=== PATIENT | female | born 1945 ===

== ENCOUNTER 2023-07-22 07:25 | Emergency (ER) | payer OTHER ==
[~2023-07-22] VITALS: Ht 167.6 cm; Wt 81.6 kg
[~2023-07-22 07:25] MED LIST: CARDURA1 MG; CARDURA1 MG PO; HYDRODIURIL12.5 MG; JANUMET 50-1,01 EACH PO; LANTUS100 U/ML SQ; METOPROLOL SUCC25 MG PO; ZOCOR20 MG
== END 2023-07-22 16:53 | disposition home or self-care (01) ==
LOC: ER 07:25
DX: R07.89 Other chest pain (principal); J45.909 Unspecified asthma, uncomplicated; E11.9 Type 2 diabetes mellitus without complications; Z79.4 Long term (current) use of insulin; Z79.84 Long term (current) use of oral hypoglycemic drugs; Z91.013 Allergy to seafood; Z20.822 Contact with and (suspected) exposure to COVID-19
CPT/HCPCS: 36415; 71045; 93005; 94640; 96365; 96366; 96372; 99284; J1885; J2930

== ENCOUNTER 2024-08-11 00:25 | Inpatient (IN) | payer OTHER ==
[~2024-08-11] VITALS: Ht 165.1 cm; Wt 68.0 kg
[2024-08-11] MEDS ORDERED: METHYLPREDNISOLONE SOD SUCC 125 MG VIAL IV STA (00:40)
[2024-08-11] MEDS ORDERED: IPRATROPIUM/ALBUTEROL SULFATE 3 ML AMPUL.NEB IH STA (00:41)
[2024-08-11] MEDS ORDERED: FUROsemide 40 MG/4 ML VIAL IV STA (00:42)
[2024-08-11] MEDS ORDERED: IPRATROPIUM/ALBUTEROL SULFATE 3 ML AMPUL.NEB IH ONE (00:48)
[2024-08-11] MEDS ORDERED: FUROsemide 20 MG/2 ML VIAL ONE ×2 (00:48→01:06)
[2024-08-11] MEDS ORDERED: METHYLPREDNISOLONE SOD SUCC 125 MG VIAL ONE (00:48)
--- NOTE | 2024-08-11 00:50 | NUR ---
SE RECIBE PACIENTE ALERTA Y ORIENTADA X3 EN COMPANIA DE PARAMEDICOS DE AMBULANCIA QUIENES REFIERE TRAER A PTE DE EGIDA DE ANCIANOS A [place] DE QUE SCHULZ ESTADO PRESENTANDO SINTOMAS DE DIFICULTAD RESPIRATORIA. AL MOMENTO SE OBSERVA PACIENTE CON RESPIRACIONES ABDOMINALES Y CONECTADA A VENTURY MASK. SE REALIZA KENJI DE S/V Y SE UBICA EN AREA DE CRITICO EN CAMA #3.
[2024-08-11 00:56] LABS: HEMATOCRIT 30.8 % (36.0-45.00); HEMOGLOBIN 10.2 g/dL (12.0-15.00); MEAN CELL VOLUME 92.3 fL (80.00-100.00); MEAN CORPUSCULAR HEMOGLOBIN 30.7 pg (27.00-32.0); MEAN CORPUSCULAR HGB CONC 33.3 g/dl (32.0-36.0); PLATELET COUNT 236 K/uL (150-450); RED BLOOD COUNT 3.34 M/uL (4.00-6.00); RED CELL DISTRIBUTION WIDTH 14.6 % (11.5-14.5)
[2024-08-11] MEDS ORDERED: 0.9 % SODIUM CHLORIDE 500 ML IV STA (01:00)
[2024-08-11] MEDS ORDERED: NITROGLYCERIN IN 5 % DEXTROSE 50 MG/250 ML BOTTLE IV STA (01:03)
[2024-08-11] MEDS ORDERED: FUROsemide 20 MG/2 ML VIAL IV STA (01:03)
[2024-08-11] MEDS ORDERED: NITROGLYCERIN IN 5 % DEXTROSE 50 MG/250 ML BOTTLE IV ONE (01:07)
[2024-08-11 01:16] LABS: ALBUMIN 3.6 gm/dL (3.4-5.0); BILIRUBIN TOTAL 0.86 mg/dL (0.3-1.2); CREATININE SERUM 1.58 mg/dL (0.55-1.02); GFR 31.47; POTASSIUM 4.43 mEq/L (3.5-5.1); TOTAL PROTEIN 7.6 gm/dL (6.4-8.2)
--- NOTE | 2024-08-11 01:30 | NUR ---
SE RECIBE PTE ALERTA ORIENTADA X3 EN AMBULANCIA EN COMPANIA DE PARAMEDICOS.SE RECIBE PTE CON NRM 100%.PARAMEDICOS REFIERE PTE PRESENTA SOB DESDE HOY EN LA NOCHE.SE KENJI EKG Y SE PRESENTA A EL CUAL ORDENA UBICAR PTE EN AREA DE CRITICO CAMA #3.SE ALEXEY MUESTRAS DE LABORATORIO USANDO MEDIDAS ASEPTICAS.SE ADMINISTRAN MEDICAMENTOS CHANTAL ORDEN MEDICA.VENOPUNCION PATENTE COREY DE EDEMA Y ERITEMA RECIBIENDO 0.9 NSS BAJANDO A 30ML/HR Y DRIP DE TRIDIL 50MG/250ML BAJANDO A 6ML/HR.SE INSERTA SONDA URINARIA A GRAVEDAD USANDO MEDIDAS ASEPTICAS Y ESTERILES EGRESO NORMAL ORINA DE COLOR [place].SE NOTIFICA A RT ACEVEDO SOBRE ABGS Y TX DE POWER/NEBULIZER.SE ORIENTA PTE SOBRE OBJETIVO DE TX MEDICO. PTE MANEJADO POR MARTITA LEVY.
[2024-08-11 03:03] LABS: ABG PH 7.354 (7.35-7.45); ABG pCO2 39.6 mmHg (35-45); BASE EXCESS -3.6 mmol/l; BICARBONATE 21.5 mmol/l (23-25); SaO2 96.7 %; Tco2 22.8 mmol/l; o2 21 %
[2024-08-11 03:04] LABS: ABG PO2 93.7 mmHg (80-100); allen test SATISFACTORY; puncture site RADIAL RIGHT
[2024-08-11] MEDS ORDERED: ALBUTEROL SULFATE 3 ML/2.5 MG AMPUL.NEB IH ONE (04:23)
[2024-08-11] MEDS ORDERED: ACETAMINOPHEN 500 MG GEL..CAP PO ONE (05:26)
--- NOTE | 2024-08-11 07:00 | NUR ---
SE RECIBE PTE ALERTA Y ORIENTADA X3 EN UNIDADA DE ICU 2 EN DESCANZO EN CAMA BAJA CON BARANDAS ELEVADAS. PTE CONECTADA A MONITOR CARDIACO Y OXIMETRIA DE PULSO CONTINUO, CANULA NASAL A 3LT/MIN. EXTREMIDADES SUPERIORES LIBRES DE EDEMA Y ERITEMA CON #18 x2 EN LA Y # 20 EN RA PATENTES RECIBIENDO TRATAMIENTO MEDICO VIA IV DE TRIDIL @ 1ML/HR Y 0.9NSS @ 30ML/HR. ABDOMEN BLANDO AL TACTO CON PERISTALSIS PRESENTE. SONDA URINARIA SAENZ BAJANDO A GRAVEDAD. EXTREMIDADES INFERIORES LIBRES DE EDEMA Y ERITEMA. SE ALEXEY SV AL RECIBIR EL TURNO Y SE DOCUMENTAN LOS MISMOS.
[2024-08-11] MEDS ORDERED: MORPHINE SULFATE 4 MG/ML VIAL IV ONE (08:30)
[2024-08-11] MEDS ORDERED: ORPHENADRINE CITRATE 30 MG/ML AMPUL IM ONE (11:00)
[2024-08-11] MEDS ORDERED: IPRATROPIUM/ALBUTEROL SULFATE 3 ML AMPUL.NEB IH SCH (13:50)
[2024-08-11] MEDS ORDERED: METOPROLOL TARTRATE 5MG/5ML AMPUL IV ONE (15:30)
--- NOTE | 2024-08-11 16:33 | NUR ---
SE RECIBE A PACIENTE ALERTA Y ORIENTADA X3 CONECTADA A MONITOR CARDIACO Y OXIMETRIA CONTINUA. PACIENTE AL MOMENTO CON CANULA NASAL A 3LT/MIN, TOLERANDO LA MISMA. CANALIZADA CON #18 X2 EN LT ARM Y #20 EN RT ARM, PATENTES, LIBRES DE EDEMA Y ERITEMA Y BAJANDO O.9NSS 500ML A 30ML/HR Y TRIDIL 50MG/250ML A 3ML/HR. EXTREMIDADES SUPERIORES SE OBSERVAN LIBRES DE EDEMA Y ERITEMA. ABDOMEN BLANDO, NO DISTENDIDO Y COREY DE DOLOR AL TACTO. AL MOMENTO PACIENTE CON SAENZ COLOCADO BAJANDO A GRAVEDAD, ORINA SE OBSERVA DE COLOR AM[place]ILLO INTENSO SIN SEDIMENTACION. EXTREMIDADES INFERIORES SE OBSERVAN CON LEVE EDEMA Y SIN ERITEMA. PACIENTE SE MANTIENE EN CAMA A NIVEL DE PISO JUNTO CON BARRANDAS ELEVADAS. PENDIENTE A CONSULTAS MEDICAS.
[2024-08-11 18:10] VITALS: BP 151/75; O2SAT 100
[2024-08-11] MEDS ORDERED: AMIODARONE HCL 50 MG/ML AMPUL IV ONE (18:30)
[2024-08-11] MEDS ORDERED: IPRATROPIUM BROMIDE 0.5 MG/2.5 ML AMPUL.NEB IH SCH (19:07)
[2024-08-11] MEDS ORDERED: FUROsemide 20 MG/2 ML VIAL IV SCH (19:09)
[2024-08-11] MEDS ORDERED: DEXTROSE 50 % IN WATER 0.5 G/ML DISP.SYRIN IV PRN (19:15)
[2024-08-11] MEDS ORDERED: ACETAMINOPHEN 500 MG GEL..CAP PO PRN (19:15)
[2024-08-11] MEDS ORDERED: INSULIN LISPRO 1,000 UNIT/10 ML UNITS SUBCUTANEO PRN (19:15)
[2024-08-11 20:30] LABS: D DIMER 1.94 MG/L; INR 1.1; PARTIAL THROMBOPLASTIN TIME 28.5 SECONDS (22.0-34.0); PROTHROMBIN TIME 11.9 SECONDS (9.0-11.5)
[2024-08-11 20:46] LABS: URINE APPEARANCE Clear; URINE BILIRRUBIN Negative (NEGATIVE); URINE BLOOD Small; URINE COLOR Yellow; URINE GLUCOSE Negative (NEGATIVE); URINE KETONE Negative (NEGATIVE); URINE LEUKOCYTE Negative; URINE NITRATE Negative; URINE UROBILINOGEN 0.2 E.U./dl
[2024-08-11 20:50] LABS: URINE BACTERIA 167.5 uL (0.0-1933); URINE EPITHELIAL CELLS 8.6 uL (0.0-38.8); URINE RBC 66.7 uL (0.0-20.8); URINE WBC 15.9 uL (0.0-23.2)
[2024-08-11 20:52] LABS: URINE CAST 0.76 uL (0.0-1.40); URINE PROTEIN 100 (NEGATIVE)
[2024-08-11] MEDS ORDERED: ENOXAPARIN SODIUM 60 MG/0.6 ML SYRINGE SUBCUTANEO SCH (21:00)
[2024-08-11 22:23] VITALS: BP 139/60; O2SAT 99
[2024-08-11 23:22] VITALS: BP 116/57; O2SAT 98
[2024-08-12] VITALS (22 sets, daily range): BP systolic 107–158; BP diastolic 54–79; O2SAT 93–100
[2024-08-12] MEDS ORDERED: NITROGLYCERIN IN 5 % DEXTROSE 250 ML IV SCH ×2 (01:47→07:15)
[2024-08-12 07:14] LABS: MAGNESIUM 1.9 mg/dL (1.8-2.4); TSH 0.871 uIU/mL (0.358-3.74)
[2024-08-12] MEDS ORDERED: FAMOTIDINE/PF 20 MG in 0.9 % SODIUM CHLORIDE 8 ML IV PUSH SCH (09:00)
[2024-08-12] MEDS ORDERED: CLOPIDOGREL BISULFATE 75 MG TABLET PO SCH (09:00)
[2024-08-12] MEDS ORDERED: ATORVASTATIN CALCIUM 40 MG TABLET PO SCH ×2 (09:00)
[2024-08-12] MEDS ORDERED: ASPIRIN 81 MG TAB.CHEW PO SCH (09:00)
[2024-08-13] VITALS (18 sets, daily range): BP systolic 114–162; BP diastolic 52–83; O2SAT 97–100
[2024-08-13] MEDS ORDERED: AMIODARONE HCL 200 MG TABLET PO SCH (09:00)
[2024-08-13] MEDS ORDERED: hydrALAZINE HCL 25 MG TABLET PO SCH ×2 (10:44→10:45)
[2024-08-14 06:41] LABS: HEMATOCRIT 31.4 % (36.0-45.00); HEMOGLOBIN 10.7 g/dL (12.0-15.00); MEAN CORPUSCULAR HEMOGLOBIN 31.4 pg (27.00-32.0); MEAN CORPUSCULAR HGB CONC 34.1 g/dl (32.0-36.0); PLATELET COUNT 218 K/uL (150-450); RED BLOOD COUNT 3.41 M/uL (4.00-6.00)
[2024-08-14 07:02] VITALS: BP 145/62; O2SAT 99
[2024-08-14 07:24] LABS: CALCIUM 9.3 mg/dL (8.5-10.1); CREATININE SERUM 1.51 mg/dL (0.55-1.02); GFR 33.16; POTASSIUM 3.39 mEq/L (3.5-5.1)
[2024-08-14] MEDS ORDERED: POTASSIUM CHLORIDE 10 MEQ CAPSULE PO NR (11:15)
[2024-08-14 12:00] VITALS: BP 106/63; O2SAT 99
[2024-08-14 15:23] VITALS: BP 106/63; BP 140/79; O2SAT 100
[2024-08-14 21:02] VITALS: BP 139/56; O2SAT 100
[2024-08-14 23:03] VITALS: BP 106/50; O2SAT 96
[2024-08-15 02:43] VITALS: BP 121/66; O2SAT 96
[2024-08-15] MEDS ORDERED: INSULIN NPH HUM/REG INSULIN HM 1,000 UNIT/10 ML UNITS SUBCUTANEO SCH (08:00)
[2024-08-15 09:48] VITALS: BP 107/54
[2024-08-15 16:33] VITALS: BP 113/65
[2024-08-15] MEDS ORDERED: BISACODYL 5 MG TABLET.EC PO SCH (17:00)
[2024-08-16 00:55] VITALS: BP 135/60; O2SAT 96
[2024-08-16 05:40] LABS: CALCIUM 8.3 mg/dL (8.5-10.1); CREATININE SERUM 1.92 mg/dL (0.55-1.02); GFR 25.13; POTASSIUM 3.2 mEq/L (3.5-5.1)
[2024-08-16] MEDS ORDERED: NA PHOS,M-B/NA PHOS,DI-BA 1 BOTTLE ENEMA RECTAL STA (08:56)
[2024-08-16] MEDS ORDERED: POTASSIUM CHLORIDE 20MEQ/100ML H2O PB IV NR (08:57)
[2024-08-16] MEDS ORDERED: MINERAL OIL 30 ML BLIST.PACK PO STA (08:57)
[2024-08-16 09:38] VITALS: BP 125/73; O2SAT 95
[2024-08-16 14:53] VITALS: O2SAT 98
[2024-08-16 16:30] VITALS: BP 154/69
[2024-08-16 16:35] VITALS: O2SAT 95
[2024-08-16 20:50] VITALS: O2SAT 97
[2024-08-17] MEDS ORDERED: ENOXAPARIN SODIUM 60 MG/0.6 ML SYRINGE SUBCUTANEO SCH (09:00)
== END 2024-08-16 22:24 | disposition home or self-care (01) | DRG 280 ==
LOC: ER 00:25 → ICU 19:28 → ICU-2 19:28 → ICU 22:58 → MEDJ 08-14 22:08
PROVIDERS: General Practice; ADMIT Internal Medicine; ATTEND Internal Medicine
PROC: B246ZZZ Ultrasonography of Right and Left Heart (ICD-10-PCS; principal; 2024-08-11)
PROC: 4A12X4Z Monitoring of Cardiac Electrical Activity, External Approach (ICD-10-PCS; 2024-08-11)
PROC: 3E0F7GC Introduction of Other Therapeutic Substance into Respiratory Tract, Via Natural or Artificial Opening (ICD-10-PCS; 2024-08-11)
PROC: 02HV33Z Insertion of Infusion Device into Superior Vena Cava, Percutaneous Approach (ICD-10-PCS; 2024-08-12)
DX: I21.A1 Myocardial infarction type 2 (principal); I50.33 Acute on chronic diastolic (congestive) heart failure; I13.0 Hypertensive heart and chronic kidney disease with heart failure and stage 1 through stage 4 chronic kidney disease, or unspecified chronic kidney disease; I48.20 Chronic atrial fibrillation, unspecified; N17.9 Acute kidney failure, unspecified; J90 Pleural effusion, not elsewhere classified; I24.9 Acute ischemic heart disease, unspecified; E11.65 Type 2 diabetes mellitus with hyperglycemia; D64.89 Other specified anemias; N18.9 Chronic kidney disease, unspecified; F43.20 Adjustment disorder, unspecified; E78.5 Hyperlipidemia, unspecified; Z79.4 Long term (current) use of insulin; Z91.013 Allergy to seafood

== ENCOUNTER 2024-10-26 14:31 | Inpatient (IN) | payer OTHER ==
[~2024-10-26] VITALS: Ht 160 cm; Wt 70.3 kg
--- NOTE | 2024-10-26 14:51 | NUR ---
SE RECIBE PTE ALERTA ORIENTADA X3 EN AMBULANCIA.PTE REFIERE SENTOR DIFICULTAD RESPIRATORIA DESDE EL ANTHONY DE RUBÉN.PTE CON HX DE CHF.SE KENJI EKG SE PRESENTA A EL CUAL ORDENA UBICAR PTE EN CHEST PAIN.
[2024-10-26] MEDS ORDERED: FUROsemide 40 MG/4 ML VIAL IV ONE (15:00)
[2024-10-26] MEDS ORDERED: NITROGLYCERIN IN 5 % DEXTROSE 50 MG/250 ML BOTTLE IV ONE ×2 (15:00→21:00)
--- NOTE | 2024-10-26 15:47 | NUR ---
SE ORIENTA PTE SOBRE TX, REFIERE ENTENDER Y ACEPTAR. SE LE CANALIZA X2 EN BRAZO OSCAR CON ANGIOS #18, LOS CUALES ESTAN PATENTES, LIBRES DE EDEMA Y ERITEMA, SE LE ADMINISTRAN MEDICAMENTOS CHANTAL ORDEN MEDICA Y SE LE ALEXEY MUESTRAS DE LABORATORIO BAJO MEDIDAS ASEPTICAS. SE LE INSERTA SAENZ CATHETER, PTE TOLERA TODO PROCEDIMIENTO. PERSONAL DE RADIOGRAFIA REALIZA XRAYS, PENDIENTE ABG'S.
[2024-10-26 15:54] LABS: HEMATOCRIT 28.7 % (36.0-45.00); HEMOGLOBIN 9.3 g/dL (12.0-15.00); MEAN CELL VOLUME 88.4 fL (80.00-100.00); MEAN CORPUSCULAR HEMOGLOBIN 28.8 pg (27.00-32.0); MEAN CORPUSCULAR HGB CONC 32.5 g/dl (32.0-36.0); PLATELET COUNT 255 K/uL (150-450); RED BLOOD COUNT 3.24 M/uL (4.00-6.00); RED CELL DISTRIBUTION WIDTH 15.8 % (11.5-14.5)
[2024-10-26 16:02] LABS: INR 1.11; PARTIAL THROMBOPLASTIN TIME 29.4 SECONDS (22.0-34.0)
[2024-10-26 16:05] LABS: ALBUMIN 3.6 gm/dL (3.4-5.0); BILIRUBIN TOTAL 1.05 mg/dL (0.3-1.2); CALCIUM 8.9 mg/dL (8.5-10.1); CREATININE SERUM 1.98 mg/dL (0.55-1.02); GFR 24.25; GLOBULINA 3.4 G/DL (2.4-3.5); POTASSIUM 4.53 mEq/L (3.5-5.1)
[2024-10-26 17:59] LABS: ABG PH 7.461 (7.35-7.45); ABG pCO2 31.7 mmHg (35-45)
[2024-10-26 18:01] LABS: BASE EXCESS -0.8 mmol/l; BICARBONATE 22.1 mmol/l (23-25); SaO2 90.5 %; allen test SATISFACTORY; puncture site RADIAL RIGHT
[2024-10-26 18:02] LABS: o2 28 %
[2024-10-26 18:24] LABS: URINE APPEARANCE Cloudy; URINE BILIRRUBIN Negative (NEGATIVE); URINE BLOOD Trace; URINE COLOR Orange; URINE GLUCOSE Negative (NEGATIVE); URINE KETONE Negative (NEGATIVE); URINE LEUKOCYTE Moderate; URINE NITRATE Positive
[2024-10-26 18:29] LABS: URINE CAST 1.47 uL (0.0-1.40); URINE EPITHELIAL CELLS 4.9 uL (0.0-38.8); URINE RBC 38.4 uL (0.0-20.8); URINE WBC 1052.5 uL (0.0-23.2)
[2024-10-26 18:52] LABS: URINE BACTERIA > 9821.5 uL (0.0-1933); URINE PROTEIN 100 (NEGATIVE)
[2024-10-26] MEDS ORDERED: INSULIN LISPRO 1,000 UNIT/10 ML UNITS SUBCUTANEO PRN (20:45)
[2024-10-26] MEDS ORDERED: DEXTROSE 50 % IN WATER 0.5 G/ML DISP.SYRIN IV PRN (20:45)
[2024-10-26] MEDS ORDERED: IPRATROPIUM/ALBUTEROL SULFATE 3 ML AMPUL.NEB IH SCH (20:46)
[2024-10-26 21:00] VITALS: BP 109/67; O2SAT 96
[2024-10-26] MEDS ORDERED: ACETAMINOPHEN 325 MG TABLET PO PRN (21:00)
[2024-10-26 22:00] VITALS: BP 118/51; O2SAT 100
[2024-10-26 23:30] VITALS: BP 127/58; O2SAT 100
[2024-10-27] VITALS (7 sets, daily range): BP systolic 100–145; BP diastolic 49–94; O2SAT 90–100
[2024-10-27] MEDS ORDERED: FUROsemide 20 MG/2 ML VIAL IV SCH (01:00)
[2024-10-27] MEDS ORDERED: PANTOPRAZOLE SODIUM 40 MG/VIAL VIAL IV SCH (09:00)
[2024-10-27] MEDS ORDERED: CEFTRIAXONE SODIUM 2,000 MG VIAL IV SCH (09:00)
[2024-10-27] MEDS ORDERED: NIFEDIPINE 30 MG TAB.SA.OSM PO SCH (09:00)
[2024-10-27] MEDS ORDERED: ENOXAPARIN SODIUM 30 MG/0.3 ML SYRINGE SUBCUTANEO SCH (09:00)
[2024-10-27] MEDS ORDERED: ATORVASTATIN CALCIUM 40 MG TABLET PO SCH (21:00)
[2024-10-27] MEDS ORDERED: GABAPENTIN 100 MG CAPSULE PO SCH (21:00)
[2024-10-28] VITALS (9 sets, daily range): BP systolic 111–148; BP diastolic 57–76; O2SAT 89–97
[2024-10-28] MEDS ORDERED: MEROPENEM 1,000 MG in 0.9 % SODIUM CHLORIDE 100 ML IV SCH (09:00)
[2024-10-28] MEDS ORDERED: NITROGLYCERIN IN 5 % DEXTROSE 50 MG/250 ML BOTTLE IV SCH (12:30)
[2024-10-28] MEDS ORDERED: NITROGLYCERIN IN 5 % DEXTROSE 250 ML IV SCH (12:45)
[2024-10-28] MEDS ORDERED: MEROPENEM 500 MG in 0.9 % SODIUM CHLORIDE 50 ML IV SCH (17:00)
[2024-10-29] VITALS (7 sets, daily range): BP systolic 99–138; BP diastolic 63–64; O2SAT 94–96
[2024-10-29] MEDS ORDERED: ISOSORBIDE MONONITRATE 30 MG TABLET PO SCH (09:00)
[2024-10-30] VITALS: BP 138/63; O2SAT 97
[2024-10-30 05:55] VITALS: O2SAT 96
[2024-10-30 09:48] VITALS: BP 104/73; O2SAT 97
[2024-10-30 10:08] VITALS: O2SAT 97
[2024-10-30 16:00] VITALS: BP 100/60; O2SAT 93
[2024-10-31 00:11] VITALS: BP 135/68; O2SAT 98
[2024-10-31 08:00] VITALS: BP 126/66; O2SAT 93
[2024-10-31 15:24] LABS: HEMATOCRIT 24.4 % (36.0-45.00); MEAN CELL VOLUME 87.1 fL (80.00-100.00); MEAN CORPUSCULAR HGB CONC 33.1 g/dl (32.0-36.0); PLATELET COUNT 258 K/uL (150-450); RED CELL DISTRIBUTION WIDTH 16.1 % (11.5-14.5)
[2024-10-31 15:25] LABS: MEAN CORPUSCULAR HEMOGLOBIN 28.9 pg (27.00-32.0); URINE APPEARANCE Clear; URINE BILIRRUBIN Negative (NEGATIVE); URINE BLOOD Negative; URINE COLOR Yellow; URINE GLUCOSE Negative (NEGATIVE); URINE KETONE Negative (NEGATIVE); URINE LEUKOCYTE Small; URINE NITRATE Negative; URINE PROTEIN 30 (NEGATIVE); URINE UROBILINOGEN 0.2 E.U./dl
[2024-10-31 15:26] LABS: HEMOGLOBIN 8.1 g/dL (12.0-15.00)
[2024-10-31 15:29] LABS: URINE BACTERIA 83.2 uL (0.0-1933); URINE EPITHELIAL CELLS 28.4 uL (0.0-38.8); URINE RBC 3.8 uL (0.0-20.8)
[2024-10-31 15:55] LABS: CALCIUM 8.6 mg/dL (8.5-10.1); CREATININE SERUM 2.86 mg/dL (0.55-1.02); GFR 15.87; POTASSIUM 4.47 mEq/L (3.5-5.1)
[2024-10-31 16:00] VITALS: BP 135/61; O2SAT 95
[2024-10-31 16:17] LABS: URINE CAST 1.03 uL (0.0-1.40)
[2024-11-01 01:26] VITALS: BP 142/68; O2SAT 95
[2024-11-01 08:00] VITALS: BP 148/64; O2SAT 98
[2024-11-01] MEDS ORDERED: PANTOPRAZOLE SODIUM 40 MG TABLET.DR PO SCH (09:00)
[2024-11-01 09:26] LABS: ABG PH 7.426 (7.35-7.45); ABG PO2 85.6 mmHg (80-100); ABG pCO2 34.9 mmHg (35-45); BASE EXCESS -1.3 mmol/l; BICARBONATE 22.4 mmol/l (23-25); SaO2 96.7 %; Tco2 23.5 mmol/l
[2024-11-01 10:31] LABS: o2 21 %
[2024-11-01 10:32] LABS: puncture site BRADIAL RIGHT
[2024-11-01 16:00] VITALS: BP 134/62; O2SAT 94
[2024-11-01] MEDS ORDERED: FUROsemide 20 MG/2 ML VIAL IV SCH (21:00)
[2024-11-02 02:01] VITALS: BP 118/70; O2SAT 96
[2024-11-02 08:00] VITALS: BP 160/70; O2SAT 97
[2024-11-02 15:52] VITALS: BP 111/60; O2SAT 91
[2024-11-02 17:12] LABS: MEAN CELL VOLUME 86.7 fL (80.00-100.00); MEAN CORPUSCULAR HGB CONC 32.4 g/dl (32.0-36.0); PLATELET COUNT 299 K/uL (150-450); RED BLOOD COUNT 2.28 M/uL (4.00-6.00); RED CELL DISTRIBUTION WIDTH 16.4 % (11.5-14.5)
[2024-11-02 17:22] LABS: HEMATOCRIT 19.8 % (36.0-45.00)
[2024-11-02 17:25] LABS: HEMOGLOBIN 6.4 g/dL (12.0-15.00)
[2024-11-02 17:29] LABS: ALBUMIN 3.1 gm/dL (3.4-5.0); CALCIUM 8.9 mg/dL (8.5-10.1); CREATININE SERUM 2.78 mg/dL (0.55-1.02); GFR 16.39; PHOSPHOROUS 4.4 mg/dL (2.5-4.9); POTASSIUM 4.97 mEq/L (3.5-5.1)
[2024-11-02] MEDS ORDERED: FUROsemide 20 MG/2 ML VIAL IV PRN (17:45)
[2024-11-03 01:23] VITALS: BP 110/69; O2SAT 95
[2024-11-03 08:00] VITALS: BP 134/77; O2SAT 96
[2024-11-03 16:40] VITALS: BP 145/72; O2SAT 91
[2024-11-04 02:02] VITALS: BP 130/71; O2SAT 90
[2024-11-04 08:00] VITALS: BP 134/79; O2SAT 96
[2024-11-04 16:00] VITALS: BP 147/61; O2SAT 100
[2024-11-05 00:33] VITALS: BP 162/85; O2SAT 97
[2024-11-05 06:55] LABS: HEMATOCRIT 32.7 % (36.0-45.00); HEMOGLOBIN 10.7 g/dL (12.0-15.00); MEAN CELL VOLUME 87.8 fL (80.00-100.00); MEAN CORPUSCULAR HEMOGLOBIN 28.7 pg (27.00-32.0); MEAN CORPUSCULAR HGB CONC 32.7 g/dl (32.0-36.0); PLATELET COUNT 291 K/uL (150-450); RED BLOOD COUNT 3.72 M/uL (4.00-6.00); RED CELL DISTRIBUTION WIDTH 15.8 % (11.5-14.5)
[2024-11-05 07:42] LABS: ALBUMIN 3.1 gm/dL (3.4-5.0); BILIRUBIN TOTAL 1.63 mg/dL (0.3-1.2); CALCIUM 9.5 mg/dL (8.5-10.1); CREATININE SERUM 1.73 mg/dL (0.55-1.02); GFR 28.34; GLOBULINA 3.6 G/DL (2.4-3.5); PHOSPHOROUS 3.5 mg/dL (2.5-4.9); POTASSIUM 4.22 mEq/L (3.5-5.1); TOTAL PROTEIN 6.7 gm/dL (6.4-8.2)
[2024-11-05 08:34] VITALS: BP 119/71; O2SAT 96
== END 2024-11-05 17:54 | disposition home or self-care (01) | DRG 292 ==
LOC: ER 14:31 → SURH 20:52 → SEC-K 20:52 → SURG 10-27 01:24 → SURH 10-28 14:34
PROVIDERS: General Practice; Internal Medicine; Internal Medicine Nephrology; ADMIT Internal Medicine; ATTEND Internal Medicine
PROC: B24BYZZ Ultrasonography of Heart with Aorta using Other Contrast (ICD-10-PCS; principal; 2024-10-26)
PROC: 4A12X4Z Monitoring of Cardiac Electrical Activity, External Approach (ICD-10-PCS; 2024-10-27)
PROC: 02HV33Z Insertion of Infusion Device into Superior Vena Cava, Percutaneous Approach (ICD-10-PCS; 2024-11-02)
PROC: 30243N1 Transfusion of Nonautologous Red Blood Cells into Central Vein, Percutaneous Approach (ICD-10-PCS; 2024-11-03)
DX: I11.0 Hypertensive heart disease with heart failure (principal); J90 Pleural effusion, not elsewhere classified; N17.9 Acute kidney failure, unspecified; N39.0 Urinary tract infection, site not specified; I50.9 Heart failure, unspecified; R09.02 Hypoxemia; B96.20 Unspecified Escherichia coli [E. coli] as the cause of diseases classified elsewhere; I25.10 Atherosclerotic heart disease of native coronary artery without angina pectoris